=== PATIENT | male | born 2000 | race African-American/Black ===

== ENCOUNTER 2021-09-02 21:40 | Emergency (ER) | payer BC, MEDICAID ==
[~2021-09-02] VITALS: Ht 175.3 cm; Wt 78.0 kg
[~2021-09-02 21:40] MED LIST: ALBUTEROL; PRO AIR INHALER
[2021-09-02 21:48] VITALS: BP 121/75
[2021-09-02] MEDS ORDERED: PREDNISONE 20MG TABLET PO ONE (22:30)
[2021-09-02] MEDS ORDERED: ALBUTEROL (0.083%) 2.5MG/3ML NEB HHN ONE (22:30)
[2021-09-02] MEDS ORDERED: P20 PO (23:19)
[2021-09-02] MEDS ORDERED: ALBU18HF2 IH (23:19)
[2021-09-02] MEDS ORDERED: ALBUL MT (23:19)
== END 2021-09-02 22:27 | disposition home or self-care (01) ==
LOC: ER 21:40
DX: J45.909 Unspecified asthma, uncomplicated (principal); R05.9 Cough, unspecified; Z20.822 Contact with and (suspected) exposure to COVID-19; Z91.010 Allergy to peanuts; Z91.013 Allergy to seafood; Z91.09 Other allergy status, other than to drugs and biological substances
CPT/HCPCS: 71045; 93005; 94640; 99285; C9803; J7512; U0003; U0005; Z7610

== ENCOUNTER 2022-11-24 16:10 | Emergency (ER) | payer BC, MEDICAID ==
[~2022-11-24] VITALS: Ht 172.7 cm; Wt 77.0 kg
[~2022-11-24 16:10] MED LIST changes: +ALBU18HF2 IH; +ALBUL MT; +P20 PO
[2022-11-24 16:18] VITALS: BP 123/71
[2022-11-24] MEDS ORDERED: AMOX1TAB16 PO (18:50)
== END 2022-11-24 19:01 | disposition home or self-care (01) ==
LOC: ER 16:10
DX: H92.02 Otalgia, left ear (principal); J45.909 Unspecified asthma, uncomplicated; Z91.018 Allergy to other foods; Z91.048 Other nonmedicinal substance allergy status; Z91.013 Allergy to seafood; Z91.010 Allergy to peanuts
CPT/HCPCS: 99283